=== PATIENT | female | born 1950 | race Caucasian/White ===

== ENCOUNTER 2017-10-04 10:03 | Inpatient (IN) | payer BC ==
[~2017-10-04] VITALS: Ht 152.4 cm; Wt 65.1 kg
[2017-10-04] VITALS (10 sets, daily range): BP systolic 84–124; BP diastolic 52–70
[2017-10-04 10:42] LABS: HEMATOCRIT 33.5 % (36.0-46.0); HEMOGLOBIN 10.7 G/DL (11.9-15.5); MCH 32.9 PG (29.0-34.0); MCHC 31.9 G/DL (30.0-36.0); MCV 103.1 FL (83-99); PLATELET COUNT 197 K/uL (156-360); RBC DIS.WIDTH-CV 15.6 % (11.8-14.6); RED BLOOD COUNT 3.25 M/uL (3.80-5.20); WHITE BLOOD COUNT 8.1 K/uL (4.1-10.2)
[2017-10-04 11:02] LABS: ALBUMIN 3.8 g/dL (3.2-4.8); CHLORIDE 108 mEq/L (99-109); POTASSIUM 4.8 mEq/L (3.7-5.4); SODIUM 141 mEq/L (136-147)
[2017-10-04 11:04] LABS: GLUCOSE 104 mg/dL (70-99); TOTAL PROTEIN 7.1 g/dL (6.4-8.3)
[2017-10-04 11:06] LABS: TOTAL BILIRUBIN 0.5 mg/dL (0.0-1.0)
[2017-10-04 11:08] LABS: ALKALINE PHOSPHATASE 58 IU/L (3-129); GFR ESTIMATE (CALCULATED) 17 mL/min/
[2017-10-04 11:09] LABS: UREA NITROGEN (BUN) 50 mg/dL (9-23)
[2017-10-04 11:10] LABS: AST (GOT) 42 IU/L (2-34)
[2017-10-04 11:11] LABS: ALT (GPT) 21 IU/L (3-49)
[2017-10-04 11:54] LABS: APPEARANCE SL.HAZY ((CLEAR)); BILIRUBIN NEGATIVE; BLOOD SMALL; COLOR YELLOW ((YELLOW)); GLUCOSE (STRIP) NEGATIVE; KETONES NEGATIVE; LEUKOCYTES LARGE; NITRITE NEGATIVE; PROTEIN (STRIP) 30; SPECIFIC GRAVITY 1.012 (1.000-1.030); UROBILINOGEN 0.2 MG/DL (0.2-1.0)
[2017-10-04 12:17] LABS: BACTERIA RARE /HPF; EPITHELIAL CELLS 1+ /HPF; MUCUS TRACE /LPF; UCUL ADDED? YES; WHITE BLOOD CELLS 20-30 /HPF (0-5)
[2017-10-04 13:53] LABS: IMM.RETIC FRACTION 18.2 % (3-19); RETIC HGB EQUIVALENT 38.5 (28-36); RETICULOCYTE COUNT 1.8 % (0.5-1.8)
[2017-10-04] MEDS ORDERED: TRAMADOL HCL50 MG PO (14:04)
[2017-10-04] MEDS ORDERED: NEURONTIN400 MG PO (14:04)
[2017-10-04] MEDS ORDERED: TENORMIN50 MG PO (14:05)
[2017-10-04] MEDS ORDERED: PREDNISONE5 MG PO (14:05)
[2017-10-04] MEDS ORDERED: MAXZIDE 37.5 M1 EACH PO (14:05)
[2017-10-04] MEDS ORDERED: ERGOCALCIF50000 UNIT PO (14:06)
[2017-10-04] MEDS ORDERED: VASOTEC10 MG PO (14:06)
[2017-10-04] MEDS ORDERED: VIRT-VITE PLUS T5 MG PO (14:07)
[2017-10-04 15:30] LABS: FOLIC ACID (FOLATE) > 22.0 NG/ML (5.0-22.0)
[2017-10-04 15:33] LABS: FERRITIN 118 NG/ML (10-291)
[2017-10-04 15:59] LABS: IRON < 10 MCG/DL (35-150); TRANSFERRIN (TIBC) 264.7 mg/dL (215-380); TRANSFERRIN SATUR. 4 % (20-55)
[2017-10-05] VITALS (13 sets, daily range): BP systolic 92–135; BP diastolic 48–76
[2017-10-05 06:43] LABS: CHLORIDE 118 MEQ/L (99-109); CREATININE 2.2 MG/DL (0.6-1.3); GFR ESTIMATE (CALCULATED) 24 mL/min/; GLUCOSE 109 mg/dL (70-99); POTASSIUM 4.8 MEQ/L (3.7-5.4); SODIUM 145 MEQ/L (136-147); UREA NITROGEN (BUN) 42 mg/dL (9-23)
[2017-10-05 06:51] LABS: HEMATOCRIT 29.6 % (36.0-46.0); HEMOGLOBIN 9.1 G/DL (11.9-15.5); MCH 32.6 PG (29.0-34.0); MCHC 30.7 G/DL (30.0-36.0); MCV 106.1 FL (83-99); RBC DIS.WIDTH-SD 62.4 % (39-53); RED BLOOD COUNT 2.79 M/uL (3.80-5.20); WHITE BLOOD COUNT 4.2 K/uL (4.1-10.2)
[2017-10-05 07:46] LABS: BASOPHIL (%) 0.2 % (0-1); EOSINOPHIL (%) 0 % (0-5); LYMPHOCYTE (%) 10.1 % (15-42); LYMPHOCYTE COUNT 0.4 K/uL (1.0-2.8); MONOCYTE (%) 3.4 % (3-12); MONOCYTE COUNT 0.1 K/uL (0-0.8); NEUTROPHIL (%) 85.3 % (45-76); NEUTROPHIL COUNT 3.6 K/uL (1.8-6.4); PLAT.SUFFICIENCY DECREASED
[2017-10-05 08:11] LABS: PLATELET COUNT 93 K/uL (156-360)
[2017-10-05 13:04] LABS: COMMENTS - BLOOD GASES +C; SITE LB
[2017-10-05 13:05] LABS: FI02 21 %; PCO2 24 mm Hg (35-45); PO2 94 mm Hg (80-100); TOTAL RESP RATE 32 resp/min; pH 7.35 (7.35-7.45)
[2017-10-05 13:06] LABS: BASE EXCESS -11.1 mEq/L (-3 to +3); BICARBONATE 13.2 mEq/L (22-26); CARBOXY HGB 1.1 % (0-5); METHEMOGLOBIN 0.6 % (0-1.5); O2 SATURATION (CALCULATED) 98.3 % (95-99)
[2017-10-06 06:37] LABS: C4 COMPLEMENT 35 MG/DL (10-40)
[2017-10-06 06:41] LABS: ALBUMIN 2.7 G/DL (3.2-4.8); ALKALINE PHOSPHATASE 28 IU/L (3-129); ALT (GPT) 22 IU/L (3-49); AST (GOT) 39 IU/L (2-34); CHLORIDE 113 MEQ/L (99-109); CREATININE 2.1 MG/DL (0.6-1.3); GFR ESTIMATE (CALCULATED) 25 mL/min/; GLUCOSE 163 mg/dL (70-99); SODIUM 145 MEQ/L (136-147); TOTAL BILIRUBIN 0.3 MG/DL (0.0-1.0); TOTAL PROTEIN 5.2 G/DL (6.4-8.3); UREA NITROGEN (BUN) 38 mg/dL (9-23)
[2017-10-06 06:43] LABS: POTASSIUM 2.9 MEQ/L (3.7-5.4)
[2017-10-06 07:00] LABS: BASOPHIL (%) 0.1 % (0-1); EOSINOPHIL (%) 0 % (0-5); HEMATOCRIT 24.2 % (36.0-46.0); HEMOGLOBIN 7.8 G/DL (11.9-15.5); IMMATURE GRANULOCYTE (%) 0.3 % (0.0-0.7); LYMPHOCYTE (%) 7.2 % (15-42); LYMPHOCYTE COUNT 0.6 K/uL (1.0-2.8); MCH 32.9 PG (29.0-34.0); MCHC 32.2 G/DL (30.0-36.0); MONOCYTE (%) 5.1 % (3-12); MONOCYTE COUNT 0.4 K/uL (0-0.8); NEUTROPHIL (%) 87.3 % (45-76); NEUTROPHIL COUNT 6.7 K/uL (1.8-6.4); RBC DIS.WIDTH-CV 15.8 % (11.8-14.6); RBC DIS.WIDTH-SD 59.4 % (39-53); RED BLOOD COUNT 2.37 M/uL (3.80-5.20); WHITE BLOOD COUNT 7.7 K/uL (4.1-10.2)
[2017-10-06 07:06] LABS: MCV 102.1 FL (83-99); PLATELET COUNT 173 K/uL (156-360)
[2017-10-06 07:25] VITALS: BP 142/67
[2017-10-06 08:28] LABS: MAGNESIUM 1.4 mg/dl (1.3-2.7)
[2017-10-06 16:12] VITALS: BP 140/69
[2017-10-06 19:43] LABS: C DIFF TOXIN POSITIVE (NEGATIVE)
[2017-10-06 22:47] VITALS: BP 145/80
[2017-10-07 07:17] VITALS: BP 157/81
[2017-10-07 10:00] LABS: HEMATOCRIT 26.2 % (36.0-46.0); HEMOGLOBIN 8.2 G/DL (11.9-15.5); MCHC 31.3 G/DL (30.0-36.0); MCV 102.3 FL (83-99); NRBC (%) 0.6 /100 WBC (0-0); PLATELET COUNT 182 K/uL (156-360); RBC DIS.WIDTH-CV 15.6 % (11.8-14.6); RBC DIS.WIDTH-SD 59.2 % (39-53); RED BLOOD COUNT 2.56 M/uL (3.80-5.20)
[2017-10-07 10:27] LABS: CHLORIDE 105 MEQ/L (99-109); CREATININE 1.7 MG/DL (0.6-1.3); GFR ESTIMATE (CALCULATED) 32 mL/min/; GLUCOSE 197 mg/dL (70-99); MAGNESIUM 1.4 mg/dl (1.3-2.7); SODIUM 145 MEQ/L (136-147); UREA NITROGEN (BUN) 31 mg/dL (9-23)
[2017-10-07 10:31] LABS: POTASSIUM 3.7 MEQ/L (3.7-5.4)
[2017-10-07 16:39] VITALS: BP 140/74
[2017-10-07 22:58] VITALS: BP 147/67
[2017-10-08 06:48] LABS: HEMATOCRIT 23.7 % (36.0-46.0); HEMOGLOBIN 7.5 G/DL (11.9-15.5); MCH 32.6 PG (29.0-34.0); MCHC 31.6 G/DL (30.0-36.0); NRBC (%) 0.4 /100 WBC (0-0); PLATELET COUNT 180 K/uL (156-360); RBC DIS.WIDTH-CV 15.2 % (11.8-14.6); RBC DIS.WIDTH-SD 57.1 % (39-53); WHITE BLOOD COUNT 9.3 K/uL (4.1-10.2)
[2017-10-08 08:11] VITALS: BP 177/84
[2017-10-08 08:15] LABS: CHLORIDE 105 MEQ/L (99-109); CREATININE 1.6 MG/DL (0.6-1.3); GFR ESTIMATE (CALCULATED) 34 mL/min/; GLUCOSE 120 mg/dL (70-99); MAGNESIUM 1.6 mg/dl (1.3-2.7); POTASSIUM 3.3 MEQ/L (3.7-5.4); SODIUM 145 MEQ/L (136-147); UREA NITROGEN (BUN) 30 mg/dL (9-23)
[2017-10-08] MEDS ORDERED: FLORASTOR250 MG PO (11:31)
[2017-10-08] MEDS ORDERED: VANCOCIN HCL125 MG PO (11:33)
[2017-10-08] MEDS ORDERED: ENALAPRIL MALEA10 MG PO (13:03)
== END 2017-10-08 14:35 | disposition home or self-care (01) | DRG 871 ==
LOC: EME 10:03 → ENRESERV 13:17 → CANRESERV 13:17 → EDOF 13:18 → 4WEST 13:18 → ENRESERV 15:11 → EDOF 15:14 → ENRESERV 16:14 → 4WEST 16:14 → ENRESERV 10-05 14:03 → 5EAST 10-05 15:58
PROVIDERS: Hospitalist; Internal Medicine; Internal Medicine Nephrology; Physician Assistant
DX: A41.9 Sepsis, unspecified organism (principal); R65.21 Severe sepsis with septic shock; M41.9 Scoliosis, unspecified; N18.4 Chronic kidney disease, stage 4 (severe); N17.0 Acute kidney failure with tubular necrosis; A04.72 Enterocolitis due to Clostridium difficile, not specified as recurrent; D50.9 Iron deficiency anemia, unspecified; E87.6 Hypokalemia; E87.2 Acidosis; I12.9 Hypertensive chronic kidney disease with stage 1 through stage 4 chronic kidney disease, or unspecified chronic kidney disease; E86.0 Dehydration; M32.14 Glomerular disease in systemic lupus erythematosus; E27.40 Unspecified adrenocortical insufficiency; E78.5 Hyperlipidemia, unspecified; Z79.52 Long term (current) use of systemic steroids; F03.90 Unspecified dementia, unspecified severity, without behavioral disturbance, psychotic disturbance, mood disturbance, and anxiety; J98.11 Atelectasis; M19.90 Unspecified osteoarthritis, unspecified site; Z85.828 Personal history of other malignant neoplasm of skin; I51.7 Cardiomegaly; E83.42 Hypomagnesemia; N39.0 Urinary tract infection, site not specified
CPT/HCPCS: 36600; 71046; 76770; 80048; 80053; 81003; 82010; 82570; 82607; 82728; 82746; 82803; 83540; 83605; 83735; 84156; 84466; 85025; 85027; 85046; 86038; 86160; 86162 90; 87040; 87086; 87493; 87641; 94640; 94799; 99281; 99285; J0696; J1644; J1720; J1756; J2543; J3370; J3480; J7030; J7050; J7070; J7120